=== PATIENT | male | born 1950 | race Caucasian/White ===

== ENCOUNTER 2020-09-30 10:22 | Outpatient (CLI) | payer OTHER, SELFPAY ==
[2020-09-30] VITALS (9 sets, daily range): BP systolic 112–135; BP diastolic 61–86; PULSE 84–107; RESP 14–22; TEMP 36.1; O2SAT 93–96
--- NOTE | 2020-09-30 10:24 | DI.RAD.S_ITS ---
PROCEDURE: PAIN L INTERLAMINAR/CAUDAL INJ INDICATIONS: [facility]ONDYLOSIS [facility] 10[facility]53. [facility], [facility], XR L-SPINE 2-3V, 12/05/2019, 11:36. FINDINGS: Fluoroscopic spot filming was performed to verify placement of a spinal needle at the L4-L5 level, as labeled on the films. Appropriate location of the needle tip was confirmed by injection of iodinated contrast. IMPRESSION: Intraprocedural examination within normal limits. Dictated by: Daniel Barboza M.D. on 09/30/2020 at 10:45 Approved by: Daniel Barboza M.D. on 09/30/2020 at 10:45
[2020-09-30] MEDS: MIDAZOLAM 5 MG/5 ML VIAL IV (11:09)
[2020-09-30] MEDS: IOPAMIDOL 15 ML VIAL 3 ML INJ (11:14)
[2020-09-30] MEDS: BUPIVACAINE 0.25% (PF) VIAL 2 ML INJ (11:14)
[2020-09-30] MEDS: BETAMETHASONE 30 MG/5 ML MDV 6 MG INJ (11:15)
[2020-09-30] MEDS: DEXAMETHASONE 10 MG/ML VIAL 20 MG INJ (11:15)
--- NOTE | 2020-09-30 11:26 | P.PCN_ITS ---
Date/Time/Diagnoses Date of procedure: 09/30/20 Time of procedure: 11:26 Pre-procedure diagnosis: 1. HNP WITH RADICULAR FEATURES, 2. MULTILEVEL CENTRAL STENOSIS, Post-procedure diagnosis: same Procedure Notes Procedure: 1. FLUOROSCOPICALLY GUIDED CONTRAST CONTROLLED INTERLAMINAR EPIDURAL STEROID INJECTION -L4/5 Indications: Yovanny is referred by Dr. Ramirez for treatment of Bilateral Foraminal Stenosis R>L LE symptoms. Physician: Jackson Real Total Fluoroscopy time (seconds): 5 Total sedation minutes: 9 Complications: none Procedure in detail & Post-procedure care: FINDINGS Multilevel Central Spinal Stenosis with Nerve Root Compression DESCRIPTION OF PROCEDURE Fluoroscopically guided, contrast-controlled L4/5 translaminar epidural steroid injection. Following review of allergy and review of potential side effects and complications, including, but not necessarily limited to, infection, allergic reaction, local tissue breakdown, temporary as well as permanent nerve injury, paralysis, stroke and possible , the patient indicated that the patient understood and agreed to proceed. An informed consent document was signed by the patient, witnessed by a nurse, and placed in the patient's chart. Additionally, other treatment options including modalities, medications, and physical therapy were reviewed with the patient. After review of previous anaesthesic history and IV conscious sedation the patient was deemed safe to proceed with today?s procedure with IV conscious sedation as ASA class II designation. Safety time-out was performed to confirm patient ID, procedure to be performed and site of procedure. IV sedation was accomplished with a combination of 2mg of Versed was administered by the RN after DO order, titrated to patient comfort during the course of the procedure while the patient remained responsive to all verbal commands In the prone position, following sterile prep and drape of the lumbar region, the L4/5 translaminar space was identified fluoroscopically. The skin was anesthetized via a 25-gauge, 1.5inch needle with 1% lidocaine solution. At this point, a 22-gauge short bevel spinal needle was atraumatically introduced and advanced under fluoroscopic guidance into the region of the L4/5 translaminar space. Depth was confirmed on lateral view. Radiological data, including multiple fluoroscopic views of the lumbar spine, reveal a spinal needle at the L4/5 translaminar space. Lateral views then show placement of the needle in the epidural space. Subsequent views show contrast material flowing superiorly and inferiorly in the epidural space. No vascular or intrathecal uptake is observed. At this point, using loss of resistance technique with saline and air, the epidural space was entered. This was confirmed following negative aspiration with injection of approximately 1.5cc of Isovue 200, showing excellent epidural flow without vascular or intrathecal uptake. At this point, 1cc of 1% lidocaine solution combined with 3cc or 20mg of dexamethasone and 6mg betamethasone was injected without incident. The patient tolerated the procedure well without signs or symptoms of complications prior to transfer to the recovery area continued monitoring without incident. The patient was then transferred to the recovery area where they were observed for an appropriate period of time after the injection. The patient reported a VAS score of 6 prior to the procedure and a post- procedure VAS of 0. POST OP INSTRUCTIONS The patient was provided a Pain Log to continue to record their response to the target-specific procedure prior to follow-up visit with their referring physician. Additionally, specific post-injection care instructions and a contact number to our office were provided if concerns arise regarding possible complications associated with the procedure are suspected.
--- NOTE | 2020-09-30 12:52 | PC.NURSE ---
Patient was placed on procedure table face down and hooked up to monitors. Noted to be in AFib rate 90-119. Patient has no noted history in the chart, does take metoprolol, no noted blood thinner. Md aware.
--- NOTE | 2020-09-30 13:23 | PC.NURSE ---
pt noted to be in rapid a fib rate 110-130 on arrival to recovery. i called and spoke with his primary MD office. Dr. Jagdeep Ramirez . [phone]. i spoke with Shanna . she stated dr ramirez would like pt to be seen in ER [facility] or [place] whichever is pts preference. Pt chose to stay here. i reported off to Kemi RN - ER pt was alert and oriented and IV still in place.
== END 2020-09-30 11:50 | disposition home or self-care (01) ==
PROVIDERS: PCP Family Medicine; Referring Provider Physical Medicine & Rehabilitation; Visit Provider Physical Medicine & Rehabilitation
DX: M51.16 Intervertebral disc disorders with radiculopathy, lumbar region (principal); M48.061 Spinal stenosis, lumbar region without neurogenic claudication
CPT/HCPCS: 62323; J0702; J1100; J2250; J3010

== ENCOUNTER 2020-09-30 11:59 | Emergency (ER) | payer OTHER, SELFPAY ==
[2020-09-30 12:05] VITALS: BP 136/100; PULSE 96; RESP 18; TEMP 36.6; O2SAT 96; BMI 34.8
--- NOTE | 2020-09-30 12:15 | PC.NURSE ---
iv started by pain clinic
--- NOTE | 2020-09-30 12:16 | DI.RAD.S_ITS ---
PROCEDURE: XR CHEST 1V INDICATIONS: chest pain TECHNIQUE: One view of the chest was acquired. COMPARISON: None. FINDINGS: Surgical changes and devices: Cervical spine postoperative changes are seen. Lungs and pleura: Lungs are clear. No pleural effusions or pneumothorax. Mediastinum: The cardiac contours are within normal limits. The aorta demonstrates calcification and tortuosity. Bones and chest wall: Age-appropriate bony degenerative changes are seen. No suspicious bony lesions. Overlying soft tissues appear unremarkable. IMPRESSION: Portable chest within normal limits. Postoperative and degenerative changes are seen. Dictated by: Daniel Barboza M.D. on 09/30/2020 at 11:44 Approved by: Daniel Barboza M.D. on 09/30/2020 at 11:44
[2020-09-30 12:38] LABS: Add Manual Diff / Slide Review NO; Basophils Absolute Auto 0 /uL (0-100); Basophils Percent Auto 0.7 % (0-2); Eosinophils Absolute Auto 100 /uL (0-450); Eosinophils Percent Auto 2.2 % (2-4); Hematocrit 47.7 % (41-53); Hemoglobin 15.7 g/dL (13.5-17.5); Lymphocytes Absolute Auto 900 /uL (1100-4500); Lymphocytes Percent Auto 17.3 % (25-40); Mean Corpuscular HGB Conc 32.9 % (30-36); Mean Corpuscular Volume 94.3 fL (80-100); Monocytes Absolute Auto 400 /uL (0-900); Monocytes Percent Auto 7.3 % (3-14); Neutrophils Absolute Auto 3700 /uL (1500-7000); Neutrophils Percent Auto 72.5 % (50-75); Platelet Count 151 X10^3/uL (150-400); Red Blood Cell Count 5.06 X10^6/uL (4.5-5.9); Red Cell Distribution Width 13.2 % (11.6-14.8); White Blood Cell Count 5.1 X10^3/uL (4.5-11.0)
[2020-09-30 12:43] LABS: INR 1.1 (0.9-1.3); Prothrombin Time 13.1 SECONDS (10.1-12.7)
[2020-09-30 12:46] LABS: PTT Partial Thromboplastin Tim 32 SECONDS (26.4-36.2)
--- NOTE | 2020-09-30 12:46 | ED_ITS ---
HPI - Arrhythmia/Palpitations General Chief Complaint: Arrhythmia/Palpitations Stated Complaint: Irregular heart rythm from pain clinic Time Seen by Provider: 09/30/20 12:27 Source: patient Mode of arrival: Wheelchair Limitations: no limitations History of Present Illness HPI narrative: A 70-year-old male who is sent from the pain management clinic for a irregular irregular heart rhythm. Patient states he was told he had AFib approximately 10 years ago. He states that he had developed syncope and they had placed him on metoprolol. He has not had a syncopal episode in many years. He is not anticoagulated. Patient states that he has noticed occasionally when he checks his heart rate that it will be irregular when he takes his pulse but he does not have any sensation of palpitations, tachycardia or bradycardia. He denies any chest pain, no shortness of breath, no nausea or vomiting no diarrhea constipation. He states he occasionally has some hesitancy with urination. Denies any other urinary symptoms. Denies any swelling of his extremities. About a year ago he noticed he had a decrease in his ability exertion after starting medication to replace his gabapentin, he states immediately after he stopped that medication his exercise intolerance improved. He did have an injection today for stenosis of the L2 through L5 spinal column prior to coming to the emergency department. He takes metoprolol, gabapentin, lovastatin and Benadryl. He was taking naproxen daily but stopped for 5 days ago prior to his intervention. Related Data Home Medications Medication Instructions Recorded Confirmed alpha lipoic acid 600 mg capsule 600 mg PO DAILY 09/08/20 09/08/20 esomeprazole magnesium 40 mg 40 mg PO DAILY 09/08/20 09/08/20 capsule,delayed release fluticasone propionate 50 1 spray INTRANASAL DAILY 09/08/20 09/08/20 mcg/actuation nasal spray,suspension gabapentin 300 mg capsule 300 mg PO DAILY 09/08/20 09/08/20 lovastatin 20 mg tablet 20 mg PO DAILY 09/08/20 09/08/20 metoprolol tartrate 25 mg tablet 25 mg PO DAILY 09/08/20 09/08/20 naproxen sodium 220 mg tablet 220 mg PO BID PRN 09/08/20 09/08/20 gabapentin 300 mg PO DAILY MDD 900 09/30/20 09/30/20 Allergies Allergy/AdvReac Type Severity Reaction Status Date / Time hydromorphone [From Dilaudid] Allergy Verified 09/30/20 12:12 Review of Systems Review of Systems ROS Unobtainable: All systems reviewed & are unremarkable except as noted in HPI and below Patient History Medical History Appendicitis Arthritis Diabetes GERD (gastroesophageal reflux disease) Herniated nucleus pulposus, L4-5 Multilevel spinal stenosis Sensory peripheral neuropathy UTI (urinary tract infection) Surgical History H/O brain surgery H/O neck surgery Hx of cholecystectomy Family History Father Cancer Grandmother Diabetes mellitus Sister Kidney disease Brother Pacemaker Social History Smoking Status: Never smoker Smoking Status: Never smoker alcohol intake frequency: holidays/special occasions only Substance Use Type: does not use Exam Narrative Exam Narrative: GENERAL: Alert and oriented x three, well-nourished male in mild distress. HEENT: Head normocephalic, atraumatic, EOMI, pupils reactive, face symmetric, moist mucous membranes NECK: Supple, full range of motion CARDIOVASCULAR: Irregularly irregular rate and rhythm without murmurs, rubs or gallops. No JVD. Swelling lower extremities. RESPIRATORY: Breath sounds equal bilaterally, no wheezes rales or rhonchi. ABDOMEN: Soft, nontender. Normoactive bowel sounds all 4 quadrants. No guarding or rebound, rigidity, no mass : No CVA tenderness EXTREMITIES: Normal range of motion, no clubbing or edema. Neurovascularly intact NEUROLOGICAL: Cranial nerves II through XII grossly intact. Moving all extremities SKIN: Warm, dry, no petechiae, no rashes or lesions. Initial Vital Signs Initial Vital Signs: Vital Signs Temperature 97.8 F 09/30/20 12:05 Pulse Rate 96 H 09/30/20 12:05 Respiratory Rate 18 09/30/20 12:05 Blood Pressure 136/100 H 09/30/20 12:05 Pulse Oximetry 96 09/30/20 12:05 Scores CHADS-VASc Congestive heart failure: no Hypertension: yes Age 75 years or older: no Diabetes mellitus: no Stroke, TIA, or TE: no Vascular disease: no Age 65 to 74 years: yes Sex category (female): Male CHADS-VASc Score: 2 Course Orders Ordered: ED Orders 09/30/20 12:16 XR chest 1V Stat EKG-12 Lead Stat 09/30/20 12:30 Complete Blood Count AUTO DIFF Stat Comprehensive Metabolic Panel Stat Lipase Stat Partial Thromboplastin Time Stat Prothrombin Time INR Stat Troponin & CK Cardiac Panel Stat Discontinued Medications Sodium Chloride (Normal Saline 0.9%) 1,000 mls @ 1,000 mls/hr IV BOLUS ONE Stop: 09/30/20 14:03 Vital Signs Vital signs: Vital Signs - 8 hr 09/30/20 12:05 Temperature 97.8 F Pulse Rate 96 H Respiratory Rate 18 Blood Pressure 136/100 H Pulse Oximetry 96 MDM - Arrhythmia/Palpitations Lab Data Attestation: I reviewed the patient's lab results. Result diagrams: 09/30/20 12:30 09/30/20 12:30 Labs: Lab Results 09/30/20 09/30/20 09/30/20 Range/Units 12:30 12:30 12:30 WBC 5.1 (4.5-11.0) X10^3/uL RBC 5.06 (4.5-5.9) X10^6/uL Hgb 15.7 (13.5-17.5) g/dL Hct 47.7 (41-53) % MCV 94.3 (80-100) fL MCH 31.0 (26-34) PG MCHC 32.9 (30-36) % RDW 13.2 (11.6-14.8) % Plt Count 151 (150-400) X10^3/uL Neut % (Auto) 72.5 (50-75) % Lymph % (Auto) 17.3 L (25-40) % [place] % (Auto) 7.3 (3-14) % Eos % (Auto) 2.2 (2-4) % Baso % (Auto) 0.7 (0-2) % Neut # (Auto) 3700 (0113-0582) /uL Lymph # (Auto) 900 L (9287-8197) /uL [place] # (Auto) 400 (0-900) /uL Eos # (Auto) 100 (0-450) /uL Baso # (Auto) 0 (0-100) /uL PT 13.1 H (10.1-12.7) SECONDS INR 1.1 (0.9-1.3) APTT 32 (26.4-36.2) SECONDS Sodium 137 (137-145) mmol/L Potassium 4.5 (3.4-5.1) mmol/L Chloride 103 (98-107) mmol/L Carbon Dioxide 30 (22-32) mmol/L BUN 23 H (9-20) mg/dL Creatinine 0.88 (0.66-1.25) mg/dL Estimated GFR > 60.0 (>60) mL/min BUN/Creatinine Ratio 26.1 H (6-22) Glucose 125 H (80-110) mg/dL Calcium 8.5 (8.4-10.2) mg/dL Total Bilirubin 1.3 (0.2-1.3) mg/dL AST 27 (17-59) IU/L ALT 20 (<50) IU/L Alkaline Phosphatase 44 (38-126) U/L Total Creatine Kinase 121 (55-170) U/L CK-MB (CK-2) 1.39 (<2.37) ng/mL CK-MB (CK-2) Rel Index 1.1 L (1.5-5.0) % Troponin I < 0.012 (0.01-0.034) ng/mL Total Protein 6.7 (6.3-8.2) g/dL Albumin 4.1 (3.5-5.0) g/dL Globulin 2.6 (1.7-4.1) g/dL Albumin/Globulin Ratio 1.6 (1.0-2.8) Lipase 99 (23-300) U/L Imaging Data Chest x-ray: Radiologist's Impresson: Pebbles Angeltonja E 70 M [address] [id number] ReportSigned Patient: Yovanny Angel EMR#: [id number]: 8Acct:[id number]/Sex: 70 / MDate of Service: 09/30/20Loc: EDAccession Number: [id number] Procedure: XR chest 1V Ordering Provider: Love Reilly D.O. PROCEDURE: XR CHEST 1V INDICATIONS: chest pain TECHNIQUE: One view of the chest was acquired. COMPARISON: None. FINDINGS: Surgical changes and devices: Cervical spine postoperative changes are seen. Lungs and pleura: Lungs are clear. No pleural effusions or pneumothorax. Mediastinum: The cardiac contours are within normal limits. The aorta demonstrates calcification and tortuosity. Bones and chest wall: Age-appropriate bony degenerative changes are seen. No suspicious bony lesions. Overlying soft tissues appear unremarkable. IMPRESSION: Portable chest within normal limits. Postoperative and degenerative changes are seen. Dictated by: Daniel Barboza M.D. on 09/30/2020 at 11:44 Approved by: Daniel Barboza M.D. on 09/30/2020 at 11:44 ECG Data Attestation: I personally reviewed and interpreted this ECG as follows: Interpretation: AFib with rate of 99 QRS 88 QTC 479. No acute ST changes appreciated. No priors available. MDM Narrative Medical decision making narrative: This is a 70-year-old male sent from the pain management clinic for regular heartbeat. Patient is not tachycardic in the department. He is asymptomatic and during discussion reveals that he was diagnosed 10 years ago with atrial fibrillation and has noted he has had intermittent episodes. He may be having more frequent episodes but continues to be asymptomatic. His chest x-ray, labs and EKG do not show any acute findings although he may be slightly dehydrated making him more likely to be in AFib. Patient's chads Vasc score is 2, he just had intervention today so I would not add anticoagulation but we discussed he should follow up with primary care discuss risk versus benefits to at least be on aspirin versus stronger anticoagulation for stroke risk. Discharge Plan Departure Patient Disposition: Home Clinical Impression: Atrial fibrillation Instructions: DI for Atrial Fibrillation Activity Restrictions/Additional Instructions: Follow-up with your physician in the next week for recheck. Discussed with your physician about starting anticoagulation, you want to discuss the risk versus benefits. The benefit of anticoagulation when in atrial fibrillation intermittently is that your risk of stroke is increased. There are risks including GI bleeding and if you are fully anticoagulated then have a traumatic injury this can be problematic. Continue home medications as prescribed. Make sure to orally hydrate at as dehydration makes you more likely to be in atrial fibrillation. Your labs reflect some mild dehydration today. Return to the ER for fevers, new chest pain, shortness of breath, passing out or lightheadedness, new swelling in your extremities, if her heart rate feels persistently fast, persistent vomiting or if you have any other new or concerning symptoms Prescriptions: No Action gabapentin 300 mg capsule 300 mg PO DAILY MDD 900 RF: 0 metoprolol tartrate 25 mg tablet 25 mg PO DAILY RF: 0 gabapentin 300 mg capsule 300 mg PO DAILY RF: 0 lovastatin 20 mg tablet 20 mg PO DAILY RF: 0 esomeprazole magnesium [Nexium] 40 mg capsule,delayed release(DR/EC) 40 mg PO DAILY RF: 0 fluticasone propionate [Allergy Relief (fluticasone)] 50 mcg/actuation spray,suspension 1 spray intranasal DAILY RF: 0 alpha lipoic acid 600 mg capsule 600 mg PO DAILY RF: 0 naproxen sodium [Flanax (naproxen)] 220 mg tablet 220 mg PO BID PRN (Reason: Pain (Scale Score 1-3)) RF: 0 Referrals: Jagdeep Ramirez MD [Primary Care Provider] -
[2020-09-30 12:49] LABS: Alanine Aminotransferase 20 IU/L (<50); Albumin 4.1 g/dL (3.5-5.0); Albumin Globulin Ratio 1.6 (1.0-2.8); Alkaline Phosphatase 44 U/L (38-126); Aspartate Aminotransferase 27 IU/L (17-59); BUN Creatinine Ratio 26.1 (6-22); Bilirubin Total 1.3 mg/dL (0.2-1.3); Blood Urea Nitrogen 23 mg/dL (9-20); Calcium 8.5 mg/dL (8.4-10.2); Carbon Dioxide 30 mmol/L (22-32); Chloride 103 mmol/L (98-107); Creatine Kinase 121 U/L (55-170); Estimated Glomerular Filt Rate > 60.0 mL/min (>60); Globulin 2.6 g/dL (1.7-4.1); Glucose 125 mg/dL (80-110); HEMOLYSIS 18 (0-50); Lipase 99 U/L (23-300); Potassium 4.5 mmol/L (3.4-5.1); Sodium 137 mmol/L (137-145); Total Protein 6.7 g/dL (6.3-8.2)
[2020-09-30 13:00] LABS: Troponin I < 0.012 ng/mL (0.01-0.034)
[2020-09-30 13:04] LABS: CKMB % Relative Index 1.1 % (1.5-5.0); Creatine Kinase MB 1.39 ng/mL (<2.37)
== END 2020-09-30 13:34 | disposition home or self-care (01) ==
PROVIDERS: Emergency Provider Emergency Medicine; PCP Family Medicine
DX: I48.91 Unspecified atrial fibrillation (principal)
CPT/HCPCS: 36415; 62323; 71045; 80053; 82550; 82553; 83690; 84484; 85025; 85610; 85730; 93005; 93010; 99283; 99284; J0702; J1100; J2250; J3010

== ENCOUNTER → 2020-12-04 14:11 | Outpatient (CLI) | payer OTHER, SELFPAY ==
--- NOTE | 2020-12-04 14:12 | DI.MRI.S_ITS ---
PROCEDURE: MR CERVICAL SPINE WO CON INDICATIONS: Cervical radiculopathy status post cervical ACDF TECHNIQUE: Noncontrast sagittal T1 spin echo and T2 fast spin echo, sagittal STIR, foraminal oblique sagittal T2 fast spin echo, and axial gradient echo or T2 fast spin echo through the cervical spine. COMPARISON: Outside Facility, [facility], MRI C-SPINE W/O CONTRAST, 02/02/2019, 15:00. FINDINGS: Image quality: Excellent. Alignment and Curvature: There is mild grade 1 anterolisthesis of C2 on C3. Loss of normal lumbar lordosis. Bone Marrow: Marrow demonstrates normal overall signal. Anterior fusion of C3-C6.. Spinal Cord: Visualized spinal cord has normal size and signal. No cerebellar tonsillar herniation. Paraspinous Soft Tissues: No paravertebral masses. Prevertebral soft tissues are normal in thickness. C2-C3: Moderate disc height loss and desiccation. Mild diffuse disc bulge. Moderate facet and uncovertebral hypertrophy bilaterally. Mild canal stenosis. Increased, moderate to severe bilateral foraminal stenosis. Bilateral C3 nerve root compression. C3-C4: Status post fusion. Mild facet and uncovertebral hypertrophy. No significant canal stenosis. Mild bilateral foraminal stenosis. No significant change. C4-C5: Status post fusion. Mild facet and uncovertebral hypertrophy bilaterally. No canal stenosis. Mild bilateral foraminal stenosis. No significant change. C5-C6: Status post fusion. Mild facet and uncovertebral hypertrophy bilaterally. Mild canal stenosis. Severe left and moderate right foraminal stenosis. Left C6 nerve root compression, new since the prior examination. C6-C7: Moderate disc height loss and desiccation. Mild diffuse disc bulge. Moderate facet and uncovertebral hypertrophy bilaterally. Increased, moderate canal stenosis. Moderate bilateral foraminal stenosis. No significant change. C7-T1: Moderate disc height loss and desiccation. Mild diffuse disc bulge. Mild facet and uncovertebral hypertrophy bilaterally. Mild canal stenosis. Moderate right and mild left foraminal stenosis. No significant change. IMPRESSION: 1. Postsurgical sequelae. No significant canal stenosis at the fused levels. 2. Multilevel degenerative disc and facet disease, as well as uncovertebral hypertrophy. 3. Multilevel canal stenoses, worst at C6-C7, where there is increased, moderate canal stenosis. 4. Multilevel foraminal stenoses, worst at C2-C3 and C5-C6 where there is associated intraforaminal nerve root compression. Recommend correlation with clinical symptoms to ascertain relevance of these findings. Dictated by: Aubree Ibarra M.D. on 12/06/2020 at 9:42 Approved by: Aubree Ibarra M.D. on 12/06/2020 at 9:52
== END ==
PROVIDERS: PCP Family Medicine; Referring Provider Physical Medicine & Rehabilitation; Visit Provider Physical Medicine & Rehabilitation
DX: M50.11 Cervical disc disorder with radiculopathy, high cervical region (principal); M48.02 Spinal stenosis, cervical region; Z98.1 Arthrodesis status
CPT/HCPCS: 72141

== ENCOUNTER 2020-12-16 12:58 | Outpatient (CLI) | payer OTHER, SELFPAY ==
[2020-12-16] VITALS (11 sets, daily range): BP systolic 105–137; BP diastolic 69–97; PULSE 85–142; RESP 14–20; O2SAT 93–98
--- NOTE | 2020-12-16 13:04 | DI.RAD.S_ITS ---
PROCEDURE: PAIN L/S TRANSFORAMINAL INJECT INDICATIONS: SPONDYLOSIS COMPARISON: None. FINDINGS: Fluoroscopic spot filming was performed to verify placement of spinal needles at the left L5-S1 neural foramen level(s), as labeled on the films. Appropriate location(s) of the needle tip(s) was confirmed by injection of iodinated contrast. IMPRESSION: Access needle at the left L5-S1 neural foramen. Dictated by: Maria D Rogers MD, PhD on 12/16/2020 at 14:40 Approved by: Maria D Rogers MD, PhD on 12/16/2020 at 14:40
[2020-12-16] MEDS: fentaNYL 100 MCG/2 ML INJ 50 MCG IV (14:11)
[2020-12-16] MEDS: MIDAZOLAM 5 MG/5 ML VIAL IV (14:11)
[2020-12-16] MEDS: IOPAMIDOL 15 ML VIAL 3 ML INJ (14:14)
[2020-12-16] MEDS: BUPIVACAINE 0.25% (PF) VIAL 2 ML INJ (14:14)
[2020-12-16] MEDS: DEXAMETHASONE 10 MG/ML VIAL 20 MG INJ (14:15)
[2020-12-16] MEDS: BETAMETHASONE 30 MG/5 ML MDV 6 MG INJ (14:15)
--- NOTE | 2020-12-16 14:32 | P.PCN_ITS ---
Date/Time/Diagnoses Date of procedure: 12/16/20 Time of procedure: 14:32 Pre-procedure diagnosis: 1. FORAMINAL STENOSIS WITH LE SYMPTOMS Post-procedure diagnosis: same Procedure Notes Procedure: 1. FLUOROSCOPICALLY GUIDED CONTRAST CONTROLLED TRANSFORAMINAL EPIDURAL STEROID INJECTION - Left L5/S1 Indications: Yovanny is referred by Dr. Ramirez for treatment of Foraminal Stenosis with Left LE Symptoms Physician: Jackson Real Total Fluoroscopy time (seconds): 20 Total sedation minutes: 14 Complications: none Procedure in detail & Post-procedure care: FINDINGS Foraminal Nerve Root Compression secondary to disc disease and facet hypertrophy DESCRIPTION OF PROCEDURE Following review of allergy and review of potential side effects and complications, including, but not necessarily limited to, infection, allergic reaction, local tissue breakdown, stroke, temporary or permanent nerve injury, paralysis, and possible , the patient indicated that the patient understood and agreed to proceed. An informed consent document was signed by the patient, witnessed by a nurse, and placed in the patient's chart. Additionally, other treatment options including medications, modalities, and physical therapy were reviewed with the patient. After review of previous anaesthesic history and IV conscious sedation the patient was deemed safe to proceed with today?s procedure with IV conscious sedation as ASA class II designation. Safety time-out was performed to confirm patient ID, procedure to be performed and site of procedure. IV sedation was accomplished with a combination of 2mg of Versed and 50mcg of Fentanyl was administered by the RN after DO order, titrated to patient comfort during the course of the procedure while the patient remained responsive to all verbal commands In the prone position following sterile prep and drape of the lumbar region, the Left L5/S1 posterior neuroforamen was identified fluoroscopically. The skin was anesthetized via a 25-gauge 1.5-inch needle with 1% lidocaine solution. At this point, a 25-gauge 3.5-inch spinal needle was atraumatically introduced and advanced under fluoroscopic guidance through the posterior Left L5/S1 neur oforamen to approximately the anterior aspect of the canal. Depth was confirmed on lateral view. Following negative aspiration, injection of approximately 1.5 cc of Isovue 200 under live fluoroscopy in the AP view confirmed excellent flow along the nerve root, into the epidural space without vascular or intrathecal uptake observed Radiological data, including multiple fluoroscopic views of the lumbosacral spine, reveal a spinal needle at the Left L5/S1 posterior neuroforamen. Subsequent views show flow of contrast material flowing superiorly and inferiorly along the nerve root confirming epidural flow. Subsequently, a test dose of 1.5 cc of 1% lidocaine solution was administered and patient was observed for two minutes for signs or symptoms of complications, including abdominal pain, shortness of breath, bilateral upper or lower extremity weakness, nausea and vomiting, prior to steroid injection. At this point, a total of 3cc or 20mg of dexamethasone and 6mg of betamethasone was injected without incident. The procedure tolerated the procedure well without signs or symptoms of complications prior to transfer to the recovery area continued monitoring without incident. The patient was then transferred to the recovery area where they were observed for an appropriate time after the injection. The patient reported a VAS score of 7 prior to the procedure and a post-procedure VAS of 0. POST OP INSTRUCTIONS The patient was provided a Pain Log to continue to record their response to the target-specific procedure prior to follow-up visit with their referring physician. Additionally, specific post-injection care instructions and a contact number to our office were provided if concerns arise regarding possible complications associated with the procedure are suspected.
--- NOTE | 2020-12-16 15:34 | PC.NURSE ---
Giving break for ANGEAL Gulilen. Pt recovering in last chair with HR 97-143 Afib at time of report from RN. Pt confirms he is asymptomatic. BP and Sats wnl. Pt verbalizing that the same siutation occurred last procedure in September with Dr Real. He was sent from the procedural room to the ER. Dr Real at bedside at 1510- confirms this was accurate. Verbally ok'd pt to be discharged. Aware pt is to have cardioversion in January and will be starting coumadin soon. I spoke with pt and educated him on symtpoms of uncontrolled Afib and risk of stroke, need to be aware fo symtpoms and report to MD or ER if present until cardioversion and medication started for Afib. Pt verbalized understanding. D/C 1520 IV removed. Ride waiting outside for him
--- NOTE | 2020-12-16 15:42 | PC.NURSE ---
1430 Patient arrived from procedure room via WC. Noted to be in a rapid afib 105-145, predominately 120's. BP stable. Sp02 96%. Patient asymptomatic. As sedation vitals continue HR remains 90's-140's - asymptomatic. Reported off to ANGELA Velasquez with plans to alert Dr. Real.
== END 2020-12-16 15:10 | disposition home or self-care (01) ==
PROVIDERS: PCP Family Medicine; Referring Provider Physical Medicine & Rehabilitation; Visit Provider Physical Medicine & Rehabilitation
DX: M48.07 Spinal stenosis, lumbosacral region (principal); M51.17 Intervertebral disc disorders with radiculopathy, lumbosacral region
CPT/HCPCS: 64483; 99152; J0702; J1100; J2250; J3010

== ENCOUNTER → 2021-01-31 14:04 | Outpatient (CLI) | payer OTHER, SELFPAY ==
--- NOTE | 2021-01-31 14:08 | DI.RAD.S_ITS ---
PROCEDURE: XR LUMBAR SPINE MIN 4V INDICATIONS: BACK PAIN TECHNIQUE: 5 views of the lumbar spine were acquired, including bilateral oblique views. COMPARISON: [facility], RG, XR L-SPINE 2-3V, 12/05/2019, 11:36. FINDINGS: Bones: No acute fracture identified. Multilevel degenerative endplate sclerosis and spurring. Diffuse facet arthropathy. Grade 1 retrolisthesis of L1 on L2 and L2 on L3. Moderate narrowing of the L5-S1, L1-L2 and L2-L3 disc spaces. Overall, no definite to very minimal progression since the prior study (at L5-S1). Bilateral mild to moderate hip osteoarthritis. Sacroiliac joints grossly intact. Soft tissues: Scattered vascular calcifications projecting in the aorta. Oblique images: No pars defects. IMPRESSION: Multilevel lumbar spondylosis and facet arthropathy, with minimal if any interval progression since 12/05/19. Dictated by: Gaston Jeter M.D. on 01/31/2021 at 14:58 Approved by: Gaston Jeter M.D. on 01/31/2021 at 15:00
--- NOTE | 2021-01-31 14:08 | DI.RAD.S_ITS ---
PROCEDURE: XR CERVICAL SPINE 4V OR 5V INDICATIONS: Cervical radiculopathy status post cervical ACDF TECHNIQUE: 5 views of the cervical spine acquired. COMPARISON: None. FINDINGS: Bones: No acute fracture identified. Postsurgical changes related to anterior spinal fixation hardware from the level of C3-C6. Hardware appears intact. No evidence of hardware loosening. Interbody cage grafts also present at C3-C4, C4-C5 and C5-C6. Multilevel degenerative endplate sclerosis and spurring. Diffuse facet arthropathy. Neural foramen not well evaluated bilaterally secondary to shallow obliquity. Trace anterolisthesis of C2 on C3. Moderate disc degeneration at C6-C7. Mild disc degeneration at C2-C3. Soft tissues: No prevertebral soft tissue swelling. IMPRESSION: Postsurgical changes as above, with moderate spondylosis at the inferior unfused segment. Trace anterolisthesis of C2 on C3. Dictated by: Gaston Jeter M.D. on 01/31/2021 at 15:01 Approved by: Gaston Jeter M.D. on 01/31/2021 at 15:03
== END ==
PROVIDERS: PCP Family Medicine; Referring Provider Physical Medicine & Rehabilitation; Visit Provider Physical Medicine & Rehabilitation
DX: M50.11 Cervical disc disorder with radiculopathy, high cervical region (principal); M47.816 Spondylosis without myelopathy or radiculopathy, lumbar region; M47.22 Other spondylosis with radiculopathy, cervical region; M51.26 Other intervertebral disc displacement, lumbar region; M16.0 Bilateral primary osteoarthritis of hip; G62.9 Polyneuropathy, unspecified; Z98.1 Arthrodesis status
CPT/HCPCS: 72050; 72110; 99214

== ENCOUNTER 2021-03-24 13:00 | Outpatient (CLI) | payer OTHER, SELFPAY ==
[2021-03-24] VITALS (9 sets, daily range): BP systolic 120–165; BP diastolic 75–88; PULSE 67–83; RESP 12–20; TEMP 36.3; O2SAT 93–98
--- NOTE | 2021-03-24 13:01 | DI.RAD.S_ITS ---
PROCEDURE: PAIN L/S FACET INJ/BLK 1ST MERI COMPARISON: None. INDICATIONS: SPONDYLOSIS FINDINGS: 3 C-arm images demonstrate placement of a needles projecting to the right L4-L5 and L5-S1 facet joints or a pain injection. IMPRESSION: C-arm imaging utilized for 2 level lumbar facet injection. Dictated by: Juan Bland M.D. on 03/24/2021 at 14:46 Approved by: Juan Bland M.D. on 03/24/2021 at 14:51
[2021-03-24] MEDS: fentaNYL 100 MCG/2 ML INJ 50 MCG IV (13:26)
[2021-03-24] MEDS: BUPIVACAINE 0.5% (PF) VIAL 5 ML INJ (13:31)
[2021-03-24] MEDS: IOPAMIDOL 15 ML VIAL 3 ML INJ (13:32)
[2021-03-24] MEDS: BETAMETHASONE 30 MG/5 ML MDV 12 MG INJ (13:32)
[2021-03-24] MEDS: LIDOCAINE 1% 20 ML 10 ML INJ (13:32)
[2021-03-24] MEDS: MIDAZOLAM 5 MG/5 ML VIAL IV (13:36)
--- NOTE | 2021-03-24 13:44 | P.PCN_ITS ---
Date/Time/Diagnoses Date of procedure: 03/24/21 Time of procedure: 13:44 Pre-procedure diagnosis: 1. FACET ARTHROPATHY 2. AXIAL LBP 3. MULTILEVEL DDD Post-procedure diagnosis: same Procedure Notes Procedure: 1. FLUOROSCOPICALLY GUIDED CONTRAST CONTROLLED FACET JOINT INJECTIONS BILATERAL L4/5, L5/S1 Indications: Yovanny is referred by Dr. Ramirez for treatment of Axial LBP Physician: Jackson Real Total Fluoroscopy time (seconds): 12 Total sedation minutes: 13 Complications: none Procedure in detail & Post-procedure care: FINDINGS Multilevel Facet Arthropathy with Clinically significant axial LBP DESCRIPTION OF PROCEDURE Fluoroscopically guided, contrast-controlled bilateral L4/5, L5/S1 facet joint injections. Following review of allergy and review of potential side effects and complications, including, but not necessarily limited to, infection, allergic reaction, local tissue breakdown, stroke, temporary or permanent nerve injury, paralysis, and possible , the patient indicated that the patient understood and agreed to proceed. An informed consent document was signed by the patient, witnessed by a nurse, and placed in the patient's chart. Additionally, other treatment options including medications, modalities, and physical therapy were reviewed with the patient. After review of previous anaesthesic history and IV conscious sedation the patient was deemed safe to proceed with today?s procedure with IV conscious sedation as ASA class II designation. Safety time-out was performed to confirm patient ID, procedure to be performed and site of procedure. IV sedation was accomplished with a combination of 2mg of Versed and 50mcg of Fentanyl was administered by the RN after DO order, titrated to patient comfort during the course of the procedure while the patient remained responsive to all verbal commands In the prone position, following sterile prep and drape of the lumbar region, the posterior aspect of the L4/5, L5/S1 facet joints were identified fluoroscopically. The skin was anesthetized via a 25-gauge 1.5inch needle with 1% lidocaine solution into the corresponding facet joints. At this point, a 22- gauge 3.5-inch spinal needle was atraumatically introduced and advanced under fluoroscopic guidance into the corresponding facet joints. Following negative aspiration, injections of approximately 0.2cc of Isovue 200 confirmed intera rticular placement without vascular uptake. The identical procedure was then performed at the L4/5, L5/S1 facet joints on the left. Radiological data, including multiple fluoroscopic views of the lumbosacral spine, reveal a spinal needle at the L4/5, L5/S1 facet joints bilaterally. Subsequent views show flow of contrast material both superiorly and inferiorly within the joint space without vascular or intrathecal uptake. At this point, a total of 0.5cc including a mixture of 0.25cc Marcaine and 0.25cc betamethasone was injected without complication into each of the corresponding facet joints. The patient tolerated the procedure well without signs or symptoms of complications prior to transfer to the recovery area continued monitoring without incident. The patient was then transferred to the recovery area where they were observed for an appropriate period of time after the injection. The patient reported a VAS score of 7 prior to the procedure and a post- procedure VAS of 0. POST OP INSTRUCTIONS The patient was provided a Pain Log to continue to record their response to the target-specific procedure prior to follow-up visit with their referring physician. Additionally, specific post-injection care instructions and a contact number to our office were provided if concerns arise regarding possible complications associated with the procedure are suspected.
== END 2021-03-24 14:07 | disposition home or self-care (01) ==
LOC: RAD 13:00
PROVIDERS: PCP Family Medicine; Referring Provider Physical Medicine & Rehabilitation; Visit Provider Physical Medicine & Rehabilitation
DX: M47.816 Spondylosis without myelopathy or radiculopathy, lumbar region (principal); M47.817 Spondylosis without myelopathy or radiculopathy, lumbosacral region; M51.36 Other intervertebral disc degeneration, lumbar region; M51.37 Other intervertebral disc degeneration, lumbosacral region; M54.5 Low back pain
CPT/HCPCS: 64493; 64494; 99152; J0702; J2250; J3010

== ENCOUNTER 2021-09-01 10:11 | Outpatient (CLI) | payer MEDICARE, SELFPAY ==
[2021-09-01] VITALS (8 sets, daily range): BP systolic 116–138; BP diastolic 67–88; PULSE 57–76; RESP 14–20; TEMP 36.3; O2SAT 95–97
--- NOTE | 2021-09-01 10:13 | DI.RAD.S_ITS ---
PROCEDURE: PAIN L INTERLAMINAR/CAUDAL INJ INDICATIONS: SPONDYLOSIS COMPARISON: [facility], , PAIN L INTERLAMINAR/CAUDAL INJ, 09/30/2020, 11:11. FINDINGS: Fluoroscopic spot filming was performed to verify placement of a spinal needle at the L5-S1 level, as labeled on the films. Appropriate location of the needle tip was confirmed by injection of iodinated contrast. IMPRESSION: No significant intraprocedural abnormality. Dictated by: Daniel Barboza M.D. on 09/01/2021 at 11:04 Approved by: Daniel Barboza M.D. on 09/01/2021 at 11:04
[2021-09-01] MEDS: fentaNYL 100 MCG/2 ML INJ 50 MCG IV (10:38)
[2021-09-01] MEDS: MIDAZOLAM 5 MG/5 ML VIAL IV (10:38)
[2021-09-01] MEDS: DEXAMETHASONE 10 MG/ML VIAL 20 MG INJ (10:42)
[2021-09-01] MEDS: BETAMETHASONE 30 MG/5 ML MDV 6 MG INJ (10:42)
[2021-09-01] MEDS: BUPIVACAINE 0.25% (PF) VIAL 2 ML INJ (10:42)
[2021-09-01] MEDS: IOPAMIDOL 15 ML VIAL 3 ML INJ (10:42)
--- NOTE | 2021-09-01 10:51 | PM.PROC.IR.1 ---
Date/Time/Diagnoses Date of procedure: 09/01/21 Time of procedure: 10:51 Pre-procedure diagnosis: 1. HNP WITH RADICULAR FEATURES, 2. MULTILEVEL CENTRAL STENOSIS, Post-procedure diagnosis: same Procedure Notes Procedure: 1. FLUOROSCOPICALLY GUIDED CONTRAST CONTROLLED INTERLAMINAR EPIDURAL STEROID INJECTION - L5/S1 Indications: Yovanny is referred by Dr. Ramirez for treatment of Bilateral Foraminal Stenosis L>R LE symptoms. Physician: Jackson Real Total Fluoroscopy time (seconds): 3 Total sedation minutes: 7 Complications: none Procedure in detail & Post-procedure care: FINDINGS Multilevel Central Spinal Stenosis with Nerve Root Compression DESCRIPTION OF PROCEDURE Fluoroscopically guided, contrast-controlled L5/S1 translaminar epidural steroid injection. Following review of allergy and review of potential side effects and complications, including, but not necessarily limited to, infection, allergic reaction, local tissue breakdown, temporary as well as permanent nerve injury, paralysis, stroke and possible , the patient indicated that the patient understood and agreed to proceed. An informed consent document was signed by the patient, witnessed by a nurse, and placed in the patient's chart. Additionally, other treatment options including modalities, medications, and physical therapy were reviewed with the patient. After review of previous anaesthesic history and IV conscious sedation the patient was deemed safe to proceed with today?s procedure with IV conscious sedation as ASA class II designation. Safety time-out was performed to confirm patient ID, procedure to be performed and site of procedure. IV sedation was accomplished with a combination of 2mg of Versed and 50mcg of Fentanyl administered by the RN after DO order, titrated to patient comfort during the course of the procedure while the patient remained responsive to all verbal commands. In the prone position, following sterile prep and drape of the lumbar region, the L5/S1 translaminar space was identified fluoroscopically. The skin was anesthetized via a 25-gauge, 1.5-inch needle with 1% lidocaine solution. At this point, a 22-gauge short bevel spinal needle was atraumatically introduced and advanced under fluoroscopic guidance into the region of the L5/S1 translaminar space. Depth was confirmed on lateral view. Radiological data, including multiple fluoroscopic views of the lumbar spine, reveal a spinal needle at the L5/S1 translaminar space. Lateral views then show placement of the needle in the epidural space. Subsequent views show contrast material flowing superiorly and inferiorly in the epidural space. No vascular or intrathecal uptake is observed. At this point, using loss of resistance technique with saline and air, the epidural space was entered. This was confirmed following negative aspiration with injection of approximately 1.5cc of Isovue 200, showing excellent epidural flow without vascular or intrathecal uptake. At this point, 1 cc of 1% lidocaine solution combined with 3cc or 20mg of dexamethasone and 6mg of betamethasone was injected without incident. The patent tolerated the procedure without signs of symptoms of complications prior to transfer to the recovery area for further monitoring. The patient was then transferred to the recovery area where they were observed for an appropriate period of time after the injection. The patient reported a VAS score of 6 prior to the procedure and a post-procedure VAS of 0. POST OP INSTRUCTIONS The patient was provided a Pain Log to continue to record their response to the target-specific procedure prior to follow-up visit with their referring physician. Additionally, specific post-injection care instructions and a contact number to our office were provided if concerns arise regarding possible complications associated with the procedure are suspected.
== END 2021-09-01 11:16 | disposition home or self-care (01) ==
LOC: RAD 10:13
PROVIDERS: PCP Family Medicine; Referring Provider Physical Medicine & Rehabilitation; Visit Provider Physical Medicine & Rehabilitation
DX: M51.17 Intervertebral disc disorders with radiculopathy, lumbosacral region (principal); M48.07 Spinal stenosis, lumbosacral region
CPT/HCPCS: 62323; J0702; J1100; J2250; J3010

== ENCOUNTER 2021-12-08 10:07 | Outpatient (CLI) | payer MEDICARE, SELFPAY ==
[2021-12-08] VITALS (8 sets, daily range): BP systolic 117–168; BP diastolic 73–91; PULSE 66–80; RESP 13–22; TEMP 36.7; O2SAT 94–96
--- NOTE | 2021-12-08 10:09 | DI.RAD.S_ITS ---
PROCEDURE: PAIN L/S FACET INJ/BLK 1ST MERI COMPARISON: [facility], XA, PAIN L/S FACET INJ/BLK 1ST MERI, 03/24/2021, 13:32. [facility], XA, PAIN L INTERLAMINAR/CAUDAL INJ, 09/01/2021, 11:42. INDICATIONS: SPONDYLOSIS FINDINGS: Fluoroscopic spot filming was performed to verify placement of spinal needles on both sides at the L4, L5, and S1 levels, as labeled on the films. Appropriate location of the needle tips was confirmed by injection of iodinated contrast. IMPRESSION: Intraprocedural examination demonstrating appropriate positions of the needles. Dictated by: Daniel Barboza M.D. on 12/08/2021 at 11:38 Approved by: Daniel Barboza M.D. on 12/08/2021 at 11:38
[2021-12-08] MEDS: IOPAMIDOL 15 ML VIAL 3 ML INJ (11:29)
[2021-12-08] MEDS: BUPIVACAINE 0.5% (PF) VIAL 5 ML INJ (11:29)
[2021-12-08] MEDS: MIDAZOLAM 2 MG/2 ML VIAL IV (11:29)
[2021-12-08] MEDS: LIDOCAINE 1% 20 ML 10 ML INJ (11:31)
--- NOTE | 2021-12-08 11:42 | P.PCN_ITS ---
Date/Time/Diagnoses Date of procedure: 12/08/21 Time of procedure: 11:42 Pre-procedure diagnosis: 1. FACET ARTHROPATHY Post-procedure diagnosis: same Procedure Notes Procedure: 1. BILATERAL- L4, L5 and S1 DIAGNOSTIC MB BLOCKS with LA Anesthetic Indications: Yovanny is referred by Dr. Ramirez for treatment of Bilateral Axial LBP. Physician: Jackson Real Total Fluoroscopy time (seconds): 13 Total sedation minutes: 16 Complications: none Procedure in detail & Post-procedure care: DESCRIPTION OF PROCEDURE Fluoroscopically guided, contrast-controlled bilateral L4, L5 and S1 medial branch blocks with 0.5cc of 0.5% Marcaine. Following review of allergy and review of potential side effects and complications, including, but not necessarily limited to, infection, allergic reaction, local tissue breakdown, nerve injury, paralysis, stroke and possible , the patient indicated that the patient understood and agreed to proceed. An informed consent document was signed by the patient, witnessed by a nurse, and placed in the patient's chart. After review of previous anaesthesic history and IV conscious sedation the patient was deemed safe to proceed with today's procedure with IV conscious sedation as ASA class II designation. Safety time-out was performed to confirm patient ID, procedure to be performed and site of procedure. IV sedation was accomplished with a combination of 2mg of Versed was administered by the RN after DO order, titrated to patient comfort during the course of the procedure while the patient remained responsive to all verbal commands In the prone position, following sterile prep and drape of the lumbar region, the right L4, L5 and S1 anatomical location of the medial branch of the dorsal ramus was identified fluoroscopically. Subsequently an anesthetic skin wheal using 1% lidocaine solution was initiated at each of the anatomical spots. Subsequently then a 22-gauge 3.5-inch spinal needle was atraumatically introduced and advanced under fluoroscopic guidance at each of the corresponding sites at the right L4, L5 and S1 MB. After negative aspiration, 0.2cc of Isovue 200 was injected, confirming placement without vascular or intrathecal uptake. Subsequently then 0.5cc of 0.5% Marcaine solution was injected at each of the corresponding sites at the right L4, L5 and S1 medial branch locations. The identical procedure was replicated on the left. The patient tolerated the procedure well without signs or symptoms of complications prior to transfer to the recovery area continued monitoring without incident. Post-procedure, the patient was monitored initiating provocative activities to measure the amount of relief from block of the facetogenic pain. The patient reported a VAS of 7 prior to the procedure and a post-procedure VAS of 1. It has been a pleasure to assist in the diagnostic and therapeutic care of your patient. POST OP INSTRUCTIONS The patient was provided with a Pain Log to complete over the next several hours and subsequent days prior to the patient's follow up with the ordering physician. If the patient has skin specialist relief to the solution applied, then they may be a candidate for medial branch rhizotomy. The patient is aware, was provided, once again, with a Pain Log and will follow up with the referring physician for review and clinical correlation
== END 2021-12-08 11:58 | disposition home or self-care (01) ==
PROVIDERS: PCP Family Medicine; Referring Provider Physical Medicine & Rehabilitation; Visit Provider Physical Medicine & Rehabilitation
DX: M47.816 Spondylosis without myelopathy or radiculopathy, lumbar region (principal); M47.817 Spondylosis without myelopathy or radiculopathy, lumbosacral region
CPT/HCPCS: 64493; 64494; 99152; J2250

== ENCOUNTER 2022-02-02 09:54 | Outpatient (CLI) | payer MEDICARE, SELFPAY ==
[2022-02-02] VITALS (9 sets, daily range): BP systolic 126–213; BP diastolic 65–96; PULSE 61–74; RESP 16–21; TEMP 36.6; O2SAT 93–96
--- NOTE | 2022-02-02 09:55 | DI.RAD.S_ITS ---
PROCEDURE: PAIN L/S FACET INJ/BLK 1ST MERI COMPARISON: [facility], , PAIN L/S FACET INJ/BLK 1ST MERI, 12/08/2021, 11:27. INDICATIONS: SPONDYLOSIS FINDINGS: Fluoroscopic spot filming was performed to verify placement of spinal needles on both sides at the L4, L5, and S1 levels, as labeled on the films. Appropriate location of the needle tips was confirmed by injection of iodinated contrast. IMPRESSION: Intraprocedural examination demonstrating appropriate positions of the needles. Dictated by: Daniel Barboza M.D. on 02/02/2022 at 11:55 Approved by: Daniel Barboza M.D. on 02/02/2022 at 11:55
[2022-02-02] MEDS: MIDAZOLAM 2 MG/2 ML VIAL (11:00)
[2022-02-02] MEDS: LIDOCAINE 1% 20 ML (11:07)
[2022-02-02] MEDS: IOPAMIDOL 15 ML VIAL 3 ML INJ (11:07)
[2022-02-02] MEDS: LIDOCAINE 2% INJ MDV 20 ML (11:08)
--- NOTE | 2022-02-02 11:22 | PM.PROC.IR.1 ---
Date/Time/Diagnoses Date of procedure: 02/02/22 Time of procedure: 11:22 Pre-procedure diagnosis: 1. FACET ARTHROPATHY Post-procedure diagnosis: same Procedure Notes Procedure: 1. BILATERAL- L4, L5 and S1 DIAGNOSTIC MB BLOCKS with SA Anesthetic Indications: Yovanny is referred by Dr. Ramirez for treatment of Bilateral Axial LBP. Physician: Jackson Real Total Fluoroscopy time (seconds): 12 Total sedation minutes: 17 Complications: none Procedure in detail & Post-procedure care: DESCRIPTION OF PROCEDURE Fluoroscopically guided, contrast-controlled bilateral L4, L5 and S1 medial branch blocks with 0.5cc of 2% Lidocaine. Following review of allergy and review of potential side effects and complications, including, but not necessarily limited to, infection, allergic reaction, local tissue breakdown, nerve injury, paralysis, stroke and possible , the patient indicated that the patient understood and agreed to proceed. An informed consent document was signed by the patient, witnessed by a nurse, and placed in the patient's chart. After review of previous anaesthesic history and IV conscious sedation the patient was deemed safe to proceed with today's procedure with IV conscious sedation as ASA class II designation. Safety time-out was performed to confirm patient ID, procedure to be performed and site of procedure. IV sedation was accomplished with a combination of 2mg of Versed was administered by the RN after DO order, titrated to patient comfort during the course of the procedure while the patient remained responsive to all verbal commands In the prone position, following sterile prep and drape of the lumbar region, the right L4, L5 and S1 anatomical location of the medial branch of the dorsal ramus was identified fluoroscopically. Subsequently an anesthetic skin wheal using 1% lidocaine solution was initiated at each of the anatomical spots. Subsequently then a 22-gauge 3.5-inch spinal needle was atraumatically introduced and advanced under fluoroscopic guidance at each of the corresponding sites at the right L4, L5 and S1 MB. After negative aspiration, 0.2cc of Isovue 200 was injected, confirming placement without vascular or intrathecal uptake. Subsequently then 0.5cc of 2% Lidocaine solution was injected at each of the corresponding sites at the right L4, L5 and S1 medial branch locations. The identical procedure was replicated on the left. The patient tolerated the procedure well without signs or symptoms of complications prior to transfer to the recovery area continued monitoring without incident. Post-procedure, the patient was monitored initiating provocative activities to measure the amount of relief from block of the facetogenic pain. The patient reported a VAS of 7 prior to the procedure and a post-procedure VAS of 1. It has been a pleasure to assist in the diagnostic and therapeutic care of your patient. POST OP INSTRUCTIONS The patient was provided with a Pain Log to complete over the next several hours and subsequent days prior to the patient's follow up with the ordering physician. If the patient has wire photo operator relief to the solution applied, then they may be a candidate for medial branch rhizotomy. The patient is aware, was provided, once again, with a Pain Log and will follow up with the referring physician for review and clinical correlation
== END 2022-02-02 11:39 | disposition home or self-care (01) ==
LOC: RAD 09:55
PROVIDERS: PCP Family Medicine; Referring Provider Physical Medicine & Rehabilitation; Visit Provider Physical Medicine & Rehabilitation
DX: M47.816 Spondylosis without myelopathy or radiculopathy, lumbar region (principal); M47.817 Spondylosis without myelopathy or radiculopathy, lumbosacral region
CPT/HCPCS: 64493; 64494; 99152; J2250

== ENCOUNTER 2022-02-21 08:40 | Outpatient (CLI) | payer MEDICARE, SELFPAY ==
[2022-02-21] VITALS (8 sets, daily range): BP systolic 100–124; BP diastolic 64–83; PULSE 18–79; RESP 15–96; TEMP 36.4; O2SAT 94–96
--- NOTE | 2022-02-21 08:41 | DI.RAD.S_ITS ---
PROCEDURE: PAIN C/T INTERLAMINAR INJECT INDICATIONS: STENOSIS COMPARISON: None. FINDINGS: Fluoroscopic spot filming was performed to verify placement of spinal needles at the C6-7 level(s), as labeled on the films. Appropriate location(s) of the needle tip(s) was confirmed by injection of iodinated contrast. IMPRESSION: C6-7 trans laminar epidural steroid injection. Dictated by: Noelle Mckeon M.D. on 02/21/2022 at 12:08 Approved by: Noelle Mckeon M.D. on 02/21/2022 at 12:09
[2022-02-21 09:34] LABS: COVID19 -Nasal RAPID Negative (Negative)
[2022-02-21] MEDS: MIDAZOLAM 2 MG/2 ML VIAL IV (10:14)
[2022-02-21] MEDS: BUPIVACAINE 0.25% (PF) VIAL 2 ML INJ (10:18)
[2022-02-21] MEDS: IOPAMIDOL 15 ML VIAL 3 ML INJ (10:18)
[2022-02-21] MEDS: DEXAMETHASONE 10 MG/ML VIAL 30 MG INJ (10:19)
--- NOTE | 2022-02-21 10:34 | P.PCN_ITS ---
Date/Time/Diagnoses Date of procedure: 02/21/22 Time of procedure: 10:34 Pre-procedure diagnosis: 1. CERVICAL STENOSIS, 2. CERVICAL HNP WITH UPPER EXTREMITY RADICULAR FEATURES Post-procedure diagnosis: same Procedure Notes Procedure: 1. FLUORSCOPICALLY GUIDED CONTRAST CONTROLLED INTERLAMINAR EPIDURAL STEROID INJECTION - C6/7 TL GUSTAVO Indications: Yovanny is referred by Dr. Sotomayor for treatment of Cervical HNP with Upper Extremity Paresthesias. Physician: Jackson Real Total Fluoroscopy time (seconds): 22 Total sedation minutes: 14 Complications: none Procedure in detail & Post-procedure care: FINDINGS Cervical Stenosis due to disc deterioration and nerve root irritation and nerve root irritation DESCRIPTION OF PROCEDURE Fluoroscopically guided, contrast-controlled C6/7 translaminar epidural steroid injection with conscious sedation. Following review of allergy and review of potential side effects and complications, including, but not necessarily limited to, infection, allergic reaction, local tissue breakdown, temporary as well as permanent nerve injury, stroke, paralysis, and possible , the patient indicated that patient understood and agreed to proceed. An informed consent document was signed by the patient, witnessed by a nurse, and placed in the patient's chart. Additionally, other treatment options including modalities, medications, and physical therapy were reviewed with the patient. After review of previous anaesthesic history and IV conscious sedation the patient was deemed safe to proceed with today?s procedure with IV conscious sedation as ASA class II designation. Safety time-out was performed to confirm patient ID, procedure to be performed and site of procedure. IV sedation was accomplished with a combination of 2mg of Versed administered by the RN after DO order, titrated to patient comfort during the course of the procedure while the patient remained responsive to all verbal commands. In the prone position, following sterile prep and drape of the cervical region, the C6/7 translaminar space was identified fluoroscopically. The skin was anesthetized via a 25-gauge 1.5-inch needle with 1% lidocaine solution. At this point, a 25-gauge, 2.5-inch short bevel spinal needle was atraumatically introduced and advanced under fluoroscopic guidance into epidural space at the C6/7 translaminar space. Depth was confirmed on lateral view. Radiological data, including multiple fluoroscopic views of the cervical spine, reveal a spinal needle at the C6/7 translaminar space. Lateral views then show placement of the needle in the epidural space. Subsequent views show contrast material flowing superiorly and inferiorly in the epidural space. DSA fluoroscopy with live contrast injection, once again, confirmed no vascular or intrathecal uptake. At this point, using loss of resistance technique with saline and air, the epidural space was entered. Following negative aspiration, injection of approximately 1.5 cc of Isovue-200 with live fluoroscopy in the AP view confirmed epidural flow in the epidural space without vascular or intrathecal uptake observed. Subsequently, a test dose of 1 cc of 1% lidocaine solution was injected and patient was observed for two minutes without signs or symptoms of complications, including abdominal pain, shortness of breath, bilateral upper or lower extremity weakness, nausea and vomiting, prior to steroid injection. At this point, 3cc or 30mg of dexamethasone was then injected without incident. The patient tolerated the procedure well without signs or symptoms of comp lications prior to being transferred to the recovery area for further monitoring, The patient was then transferred to the recovery area where they were observed for an appropriate period of time after the injection. The patient reported a VAS score of 6 prior to the procedure and a post-procedure VAS of 0. POST OP INSTRUCTIONS The patient was provided a Pain Log to continue to record their response to the target-specific procedure prior to follow-up visit with the referring provider. Additionally, specific post-injection care instructions and a contact number to our office were provided if concerns arise regarding possible complications associated with the procedure are suspected.
== END 2022-02-21 10:56 | disposition home or self-care (01) ==
LOC: RAD 08:41
PROVIDERS: PCP Family Medicine; Referring Provider Physical Medicine & Rehabilitation; Visit Provider Physical Medicine & Rehabilitation
DX: M48.02 Spinal stenosis, cervical region (principal); M50.123 Cervical disc disorder at C6-C7 level with radiculopathy; Z20.822 Contact with and (suspected) exposure to COVID-19
CPT/HCPCS: 62321; 87635; 99152; J1100; J2250

== ENCOUNTER 2022-07-04 10:39 | Outpatient (CLI) | payer MEDICARE, SELFPAY ==
[2022-07-04] VITALS (15 sets, daily range): BP systolic 132–189; BP diastolic 77–102; PULSE 57–646; RESP 14–18; TEMP 36.4; O2SAT 92–97
--- NOTE | 2022-07-04 10:40 | DI.RAD.S_ITS ---
PROCEDURE: PAIN L/S MED/LAT N RFA BILAT INDICATIONS: SPONDYLOSIS COMPARISON: None. FINDINGS: Fluoroscopic spot filming was performed to verify placement of spinal needles at the bilateral L4-L5, L5-S1 and S1-S2 neural foramen level(s), as labeled on the films. Appropriate location(s) of the needle tip(s) was confirmed by injection of iodinated contrast. IMPRESSION: Access needles at the bilateral L4-L5, L5-S1 and S1-S2 neural foramen for bilateral L4, L5 and S1 medial branch rhizotomy. Dictated by: Maria D Rogers MD, PhD on 07/04/2022 at 14:01 Approved by: Maria D Rogers MD, PhD on 07/04/2022 at 14:02
[2022-07-04] MEDS: MIDAZOLAM 2 MG/2 ML VIAL 3 MG IV (12:12)
[2022-07-04] MEDS: BUPIVACAINE 0.5% MDV 5 ML SUBCUT (12:15)
[2022-07-04] MEDS: LIDOCAINE 1% 20 ML 5 ML INJ (12:16)
--- NOTE | 2022-07-04 12:53 | P.PCN_ITS ---
Date/Time/Diagnoses Date of procedure: 07/04/22 Time of procedure: 12:53 Pre-procedure diagnosis: 1. RECALCITRANT FACET ARTHROPATHY Post-procedure diagnosis: same Procedure Notes Procedure: 1. BILATERAL L4 AND L5 MEDIAL BRANCH RADIOFREQUENCY NEUROTOMY AND S1 DORSAL RAMUS BRANCH RADIOFREQUENCY NEUROTOMY Indications: Yovanny is referred by Dr. Sotomayor for treatment of facet arthropathy. Physician: Jackson Real Total Fluoroscopy time (seconds): 40 Total sedation minutes: 21 Complications: none Procedure in detail & Post-procedure care: DESCRIPTION OF PROCEDURE Bilateral L4 and L5 medial branch radiofrequency neurotomy and bilateral S1 dorsal ramus radiofrequency neurotomy under fluoroscopy with conscious sedation. The patient is well known to this clinic having undergone previous facet injections with good but temporary relief. The patient has experienced appropriate, concordant relief with previous facet and median branch blocks but the patient's pain has been recalcitrant to further conservative measures. Therefore, based upon the patient's relief and persistent symptoms, the patient is considered an appropriate candidate for facet rhizotomy. All of the patient's questions regarding the risks versus benefits of the procedure, including, but not limited to, bleeding, infection, temporary as well as lasting nerve injury, paralysis, stroke, and , as well treatment alternatives were answered to satisfaction. After obtaining informed consent, denial of pertinent drug allergies, as well as being made aware of the potential risks of bleeding, infection, spinal cord trauma, paralysis, temporary and permanent nerve damage, seizure, stroke, and possible , the patient was brought to the fluoroscopy suite and positioned prone on the fluoroscopy table. The lumbar region was prepped with Betadine and covered with a fenestrated drape in the usual sterile fashion. Appropriate monitors applied including pulse oximeter, pulse, and blood pressure for regular monitoring throughout the procedure. After review of previous anaesthesic history and IV conscious sedation the patient was deemed safe to proceed with today's procedure with IV conscious sedation as ASA class II designation. Safety time-out was performed to confirm patient ID, procedure to be performed and site of procedure. IV sedation was accomplished with a combination of 3mg of Versed administered by the RN after DO order, titrated to patient comfort during the course of the procedure while the patient remained responsive to all verbal commands. After local infiltration using 1% lidocaine, under fluoroscopic guidance, a 10- cm RF insulated needle with a 10-mm active tip was positioned parallel to the junction of the right sacral ala and the superior articulating process where the S1 dorsal ramus resides. Needle placement was confirmed with motor stimulation of .5v on the right which produced local stimulation without radicular component. The stimulation was then increased to 2v with, once again, only local multifidus stimulation without radicular component. The needle was then removed and the identical procedure was performed along the length of the right L5 medial branch with motor stimulation at .7v on the right. The identical procedure was once again performed along the length of the right L4 medial branch with motor stimulation of .5v on the right. The medial branches were then anesthetised with 0.5% Marcaine. This was then followed by two discreet lesions performed at 80 degrees Celsius for 90 seconds each. The identical procedure was repeated on the left. The patient tolerated the procedure well without signs or symptoms of complications prior to transfer to the recovery area continued monitoring without incident. The patient was then transferred to the recovery area where they were observed for an appropriate period of time after the injection. The patient reported a VAS score of 9 prior to the procedure and a post-procedure VAS of 0. POST OP INSTRUCTIONS The patient was provided a Pain Log to continue to record the patient's response to the target-specific procedure prior to the patient's follow-up visit with the referring physician. Additionally, specific post-injection care instructions and a contact number to our office were provided if concerns arise regarding possible complications associated with the procedure are suspected.
== END 2022-07-04 13:16 | disposition home or self-care (01) ==
LOC: RAD 10:40
PROVIDERS: PCP Family Medicine; Referring Provider Physical Medicine & Rehabilitation; Visit Provider Physical Medicine & Rehabilitation
DX: M47.816 Spondylosis without myelopathy or radiculopathy, lumbar region (principal); M47.817 Spondylosis without myelopathy or radiculopathy, lumbosacral region
CPT/HCPCS: 64635; 64636; 99152; J2250

== ENCOUNTER 2022-08-01 09:13 | Outpatient (CLI) | payer MEDICARE, SELFPAY ==
[2022-08-01] VITALS (9 sets, daily range): BP systolic 101–135; BP diastolic 67–81; PULSE 63–73; RESP 16–20; TEMP 36.4; O2SAT 93–98
--- NOTE | 2022-08-01 09:14 | DI.RAD.S_ITS ---
PROCEDURE: PAIN C/T INTERLAMINAR INJECT INDICATIONS: SPINAL STENOSIS COMPARISON: [facility], , PAIN C/T INTERLAMINAR INJECT, 02/21/2022, 10:18. FINDINGS: Fluoroscopic spot filming was performed to verify placement of spinal needles at the C6-C7 interlaminar space level(s), as labeled on the films. Appropriate location(s) of the needle tip(s) was confirmed by injection of iodinated contrast. IMPRESSION: Haines needle in the C6-C7 interlaminar space for translaminar epidural steroid injection. Dictated by: Maria D Rogers MD, PhD on 08/01/2022 at 14:17 Approved by: Maria D Rogers MD, PhD on 08/01/2022 at 14:17
[2022-08-01] MEDS: MIDAZOLAM 2 MG/2 ML VIAL IV (10:41)
[2022-08-01] MEDS: DEXAMETHASONE 10 MG/ML VIAL 30 MG INJ (10:51)
[2022-08-01] MEDS: BUPIVACAINE 0.25% (PF) VIAL 2 ML INJ (10:51)
[2022-08-01] MEDS: IOPAMIDOL 15 ML VIAL 3 ML INJ (10:51)
--- NOTE | 2022-08-01 11:09 | P.PCN_ITS ---
Date/Time/Diagnoses Date of procedure: 08/01/22 Time of procedure: 11:09 Pre-procedure diagnosis: 1. CERVICAL STENOSIS, 2. CERVICAL HNP WITH UPPER EXTREMITY RADICULAR FEATURES Post-procedure diagnosis: same Procedure Notes Procedure: 1. FLUORSCOPICALLY GUIDED CONTRAST CONTROLLED INTERLAMINAR EPIDURAL STEROID INJECTION - C6/7 TL GUSTAVO Indications: Yovanny is referred by Dr. Sotomayor for treatment of Cervical HNP with Upper Extremity Paresthesias. Physician: Jackson Real Total Fluoroscopy time (seconds): 27 Total sedation minutes: 19 Complications: none Procedure in detail & Post-procedure care: FINDINGS Cervical Stenosis due to disc deterioration and nerve root irritation and nerve root irritation DESCRIPTION OF PROCEDURE Fluoroscopically guided, contrast-controlled C6/7 translaminar epidural steroid injection with conscious sedation. Following review of allergy and review of potential side effects and complications, including, but not necessarily limited to, infection, allergic reaction, local tissue breakdown, temporary as well as permanent nerve injury, stroke, paralysis, and possible , the patient indicated that patient understood and agreed to proceed. An informed consent document was signed by the patient, witnessed by a nurse, and placed in the patient's chart. Additionally, other treatment options including modalities, medications, and physical therapy were reviewed with the patient. After review of previous anaesthesic history and IV conscious sedation the patient was deemed safe to proceed with today?s procedure with IV conscious sedation as ASA class II designation. Safety time-out was performed to confirm patient ID, procedure to be performed and site of procedure. IV sedation was accomplished with a combination of 2mg of Versed administered by the RN after DO order, titrated to patient comfort during the course of the procedure while the patient remained responsive to all verbal commands. In the prone position, following sterile prep and drape of the cervical region, the C6/7 translaminar space was identified fluoroscopically. The skin was anesthetized via a 25-gauge 1.5-inch needle with 1% lidocaine solution. At this point, a 25-gauge, 2.5-inch short bevel spinal needle was atraumatically introduced and advanced under fluoroscopic guidance into epidural space at the C6/7 translaminar space. Depth was confirmed on lateral view. Radiological data, including multiple fluoroscopic views of the cervical spine, reveal a spinal needle at the C6/7 translaminar space. Lateral views then show placement of the needle in the epidural space. Subsequent views show contrast material flowing superiorly and inferiorly in the epidural space. DSA fluoroscopy with live contrast injection, once again, confirmed no vascular or intrathecal uptake. At this point, using loss of resistance technique with saline and air, the epidural space was entered. Following negative aspiration, injection of approximately 1.5 cc of Isovue-200 with live fluoroscopy in the AP view confirmed epidural flow in the epidural space without vascular or intrathecal uptake observed. Subsequently, a test dose of 1cc of 1% lidocaine solution was injected and patient was observed for two minutes without signs or symptoms of complications, including abdominal pain, shortness of breath, bilateral upper or lower extremity weakness, nausea and vomiting, prior to steroid injection. At this point, 3cc or 30mg of dexamethasone was then injected without incident. The patient tolerated the procedure well without signs or symptoms of compl ications prior to being transferred to the recovery area for further monitoring, The patient was then transferred to the recovery area where they were observed for an appropriate period of time after the injection. The patient reported a VAS score of 6 prior to the procedure and a post-procedure VAS of 0. POST OP INSTRUCTIONS The patient was provided a Pain Log to continue to record their response to the target-specific procedure prior to follow-up visit with the referring provider. Additionally, specific post-injection care instructions and a contact number to our office were provided if concerns arise regarding possible complications associated with the procedure are suspected.
--- NOTE | 2022-08-01 13:06 | PC.NURSE ---
0945- patients INR was checked was 1.0 Dr Real notified prior to procedure and per Dr Real he was advised to restart his Coumadin tonight. Patient educated at d/c. Has no other questions.
== END 2022-08-01 11:23 | disposition home or self-care (01) ==
LOC: RAD 09:14
PROVIDERS: PCP Family Medicine; Referring Provider Physical Medicine & Rehabilitation; Visit Provider Physical Medicine & Rehabilitation
DX: M48.02 Spinal stenosis, cervical region (principal); M50.123 Cervical disc disorder at C6-C7 level with radiculopathy
CPT/HCPCS: 62321; 99152; J1100; J2250; J3490